=== PATIENT | female | born 1960 | race Caucasian/White ===

== ENCOUNTER → 2017-03-02 | Day surgery (SDC) | payer BC ==
[~2017-03-02] MED LIST: ACID REDUCER150 MG PO; ALEVE220 M1 PO
--- NOTE | ~2017-03-02 | OR ---
Unit #: [id number] #: [id number] Patient: RAUDEL COPPOLA [id number] [address] [id number] O MR#: [id number] NAME: RAUDEL COPPOLA. ROOM: Date of Procedure: 03/02/2017 Admission Date: 03/02/2017 Surgeon: Flaco Gamez M.D. : 1960 Attending Physician: Flaco Gamez M.D. Primary Care Physician: Derrick Deluna M.D. OPERATIVE REPORT PREOPERATIVE DIAGNOSIS Chronic cholecystitis. POSTOPERATIVE DIAGNOSIS Chronic cholecystitis. PROCEDURE PERFORMED Laparoscopic cholecystectomy. ASSISTANT Dariusz Rothman M.D. ANESTHESIA General endotracheal anesthesia. ESTIMATED BLOOD LOSS Minimal. IV FLUIDS 800 crystalloid. COMPLICATIONS None. INDICATIONS FOR PROCEDURE The patient is a 56-year-old with chronic cholecystitis. She presents for laparoscopic cholecystectomy. DESCRIPTION OF PROCEDURE The patient was taken to the operating theater and placed in a supine position. General anesthesia was induced. Her abdomen was prepped and draped. A 5-mm Optiview trocar was placed in the right upper quadrant without difficulty. The abdomen was insufflated to 15 mmHg with CO2. Under direct vision, I placed a subxiphoid 10 mm, right lateral 5 mm, and umbilical 5 mm. General inspection of the abdomen revealed multiple adhesions to the gallbladder. These were retracted up over the liver. I dissected the neck of the gallbladder and identified the cystic duct. Its junction with the gallbladder was confirmed. It was thus skeletonized, doubly hemoclipped, and divided. The cystic artery laid immediately posterior. This was skeletonized, doubly hemoclipped, and divided. The gallbladder was removed from the gallbladder bed with Bovie electrocautery and delivered via the subxiphoid port. Hemostasis was adequate. I Unit #: [id number] #: [id number] Patient: RAUDEL COPPOLA removed the ports under direct vision and closed the fascia with 0 Vicryl and skin with 4-0 Vicryl. The patient tolerated the procedure well and sent to recovery room in good condition. Dictated by... Fabiola Weeks/venus TD: 03/02/2017 23:30 JOB #: [id number] OPERATIVE REPORT Page 1 of 1 X Flaco Gamez MD PROCEDURE OPERATIVE NOTE
== END | disposition home or self-care (01) ==
LOC: CSUR 05:36
DX: K80.10 Calculus of gallbladder with chronic cholecystitis without obstruction (principal); F17.210 Nicotine dependence, cigarettes, uncomplicated; Z87.440 Personal history of urinary (tract) infections; Z79.899 Other long term (current) drug therapy; Z98.51 Tubal ligation status
CPT/HCPCS: 88304; J0330; J0690; J1100; J1644; J2250; J2405; J2710; J3010